=== PATIENT | male | born 1995 | race Caucasian/White ===

== ENCOUNTER → 2018-04-12 | Outpatient (CLI) | payer OTHER | LOC: M OUTALCOH 15:28 | DX: Z03.89 Encounter for observation for other suspected diseases and conditions ruled out (principal) ==

== ENCOUNTER 2018-04-22 09:31 | Outpatient (RCR) | payer OTHER | END 2018-05-22 | LOC: M OUTALCOH 09:31 | DX: Z03.89 Encounter for observation for other suspected diseases and conditions ruled out (principal) ==